=== PATIENT | male | born 1970 | race Caucasian/White ===

== ENCOUNTER → 2016-08-15 | Outpatient (CLI) | payer OTHER ==
--- NOTE | 2016-08-15 10:46 | KCIC ---
PROCEDURE Single-view chest dated 08/15/2016. HISTORY Positive TB reactor. TECHNIQUE Single upright view performed. COMPARISON None. FINDINGS Heart and mediastinal contours are within normal limits. Lungs are hyperinflated but otherwise clear. No consolidation or pleural effusion. No pneumothorax. IMPRESSION No radiographic evidence of active tuberculosis. Electronically signed by: Giuliano Moran (August 15, 2016 10:45:28)
== END | disposition home or self-care (01) ==
LOC: KCIC 10:23
PROVIDERS: ATTEND Family Medicine
DX: R76.11 Nonspecific reaction to tuberculin skin test without active tuberculosis (principal)
CPT/HCPCS: 71010